=== PATIENT | female | born 1990 | race American Indian/Alaskan Native ===

== ENCOUNTER 2017-12-16 07:37 | Emergency (ER) | payer SELFPAY ==
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
[2017-12-16 12:26] LABS: HCG Qualitative,Urine Negative (Negative)
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
[2017-12-16] MEDS ORDERED: MOTRIN PO ONE (13:21)
[2017-12-16 13:42] VITALS: BP 124/78
== END 2017-12-16 13:40 | disposition home or self-care (01) ==
LOC: ED 07:37
DX: S00.83XA Contusion of other part of head, initial encounter (principal); H57.8 Other specified disorders of eye and adnexa; F17.200 Nicotine dependence, unspecified, uncomplicated; F12.10 Cannabis abuse, uncomplicated; V89.2XXA Person injured in unspecified motor-vehicle accident, traffic, initial encounter; W22.19XA Striking against or struck by other automobile airbag, initial encounter; Y93.89 Activity, other specified; Y99.8 Other external cause status; Y92.488 Other paved roadways as the place of occurrence of the external cause
CPT/HCPCS: 70450; 70486; 72125; 81025

== ENCOUNTER 2018-03-30 10:08 | Emergency (ER) | payer MEDICAID ==
[2018-03-30 10:21] VITALS: BP 109/61
[2018-03-30] MEDS ORDERED: MOTRIN PO ONE (11:22)
--- NOTE | 2018-03-30 11:26 | Emergency Department Report ---
ED ENT HPI - General Chief complaint: Dental/Oral Stated complaint: TOOTHACHE Time Seen by Provider: 03/30/18 11:21 Source: patient Mode of arrival: Ambulatory Limitations: No Limitations - History of Present Illness Initial comments: 77-year-old -[place] female with no past medical history comes in complaining of left upper tooth pain for 1 week. Patient reports that the pain is a 10 out of 10 and it makes her head hurts. She admits to chills no fever. Patient reports that she does not have a dentist that she may be able to be seen by dentist on . Since only taken Tylenol and Goody powders for pain management. She reports this has not helped. MD complaint: tooth pain -: week(s) (1) Location: tooth # (16) Severity: severe Severity scale (0 -10): 10 Quality: aching, constant Consistency: constant - Related Data Previous Rx's Medication Instructions Recorded Last Taken Type Sulfamethoxazole/Trimethoprim 1 each PO Q12H #14 tablet 06/06/14 Unknown Rx [Bactrim Ds] Cyclobenzaprine [Flexeril 10 MG 10 mg PO TID PRN #30 tablet 06/18/15 Unknown Rx TAB] HYDROcodone/APAP 5-325 [[place] 1 each PO Q6HR PRN #20 tablet 06/18/15 Unknown Rx 5-325 mg TAB] Ibuprofen [Motrin 600 MG tab] 600 mg PO Q8H PRN #40 tablet 06/18/15 Unknown Rx Loratadine [Claritin] 10 mg PO DAILY #30 tablet 06/18/15 Unknown Rx Sulfamethoxazole/Trimethoprim 1 each PO BID #20 tablet 06/18/15 Unknown Rx [Bactrim DS TAB] Cyclobenzaprine [Flexeril] 10 mg PO TID PRN #12 tablet 12/16/17 Unknown Rx Erythromycin [Erythromycin Ophth 1 applic OP QID #1 tube 12/16/17 Unknown Rx Oint] Amoxicillin [Amoxicillin TAB] 875 mg PO BID #20 tablet 03/30/18 Unknown Rx Ibuprofen [Motrin 800 MG tab] 800 mg PO Q8HR PRN #30 tablet 03/30/18 Unknown Rx traMADol [Ultram 50 MG tab] 50 mg PO Q6HR PRN #20 tablet 03/30/18 Unknown Rx Allergies Allergy/AdvReac Type Severity Reaction Status Date / Time No Known Allergies Allergy Verified 06/06/14 07:32 ED Dental HPI - General Chief complaint: Dental/Oral Stated complaint: TOOTHACHE Time Seen by Provider: 03/30/18 11:21 Source: patient Mode of arrival: Ambulatory Limitations: No Limitations - Related Data Previous Rx's Medication Instructions Recorded Last Taken Type Sulfamethoxazole/Trimethoprim 1 each PO Q12H #14 tablet 06/06/14 Unknown Rx [Bactrim Ds] Cyclobenzaprine [Flexeril 10 MG 10 mg PO TID PRN #30 tablet 06/18/15 Unknown Rx TAB] HYDROcodone/APAP 5-325 [[place] 1 each PO Q6HR PRN #20 tablet 06/18/15 Unknown Rx 5-325 mg TAB] Ibuprofen [Motrin 600 MG tab] 600 mg PO Q8H PRN #40 tablet 06/18/15 Unknown Rx Loratadine [Claritin] 10 mg PO DAILY #30 tablet 06/18/15 Unknown Rx Sulfamethoxazole/Trimethoprim 1 each PO BID #20 tablet 06/18/15 Unknown Rx [Bactrim DS TAB] Cyclobenzaprine [Flexeril] 10 mg PO TID PRN #12 tablet 12/16/17 Unknown Rx Erythromycin [Erythromycin Ophth 1 applic OP QID #1 tube 12/16/17 Unknown Rx Oint] Amoxicillin [Amoxicillin TAB] 875 mg PO BID #20 tablet 03/30/18 Unknown Rx Ibuprofen [Motrin 800 MG tab] 800 mg PO Q8HR PRN #30 tablet 03/30/18 Unknown Rx traMADol [Ultram 50 MG tab] 50 mg PO Q6HR PRN #20 tablet 03/30/18 Unknown Rx Allergies Allergy/AdvReac Type Severity Reaction Status Date / Time No Known Allergies Allergy Verified 06/06/14 07:32 ED Review of Systems ROS: Stated complaint: TOOTHACHE Other details as noted in HPI Constitutional: chills Eyes: denies: eye pain, eye discharge, vision change ENT: dental pain Respiratory: denies: cough, shortness of breath, wheezing Cardiovascular: denies: chest pain, palpitations Endocrine: no symptoms reported Gastrointestinal: denies: abdominal pain, nausea, diarrhea Genitourinary: denies: urgency, dysuria, discharge Musculoskeletal: denies: back pain, joint swelling, arthralgia Skin: denies: rash, lesions Neurological: denies: headache, weakness, paresthesias Psychiatric: denies: anxiety, depression Hematological/Lymphatic: denies: easy bleeding, easy bruising ED Past Medical Hx - Past Medical History Previous Medical History?: No - Surgical History Past Surgical History?: No - Social History Smoking Status: Current Every Day Smoker Substance Use Type: Alcohol - Medications Home Medications: Home Medications Medication Instructions Recorded Confirmed Last Taken Type Sulfamethoxazole/Trimethoprim 1 each PO Q12H #14 tablet 06/06/14 Unknown Rx [Bactrim Ds] Cyclobenzaprine [Flexeril 10 MG 10 mg PO TID PRN #30 tablet 06/18/15 Unknown Rx TAB] HYDROcodone/APAP 5-325 [[place] 1 each PO Q6HR PRN #20 tablet 06/18/15 Unknown Rx 5-325 mg TAB] Ibuprofen [Motrin 600 MG tab] 600 mg PO Q8H PRN #40 tablet 06/18/15 Unknown Rx Loratadine [Claritin] 10 mg PO DAILY #30 tablet 06/18/15 Unknown Rx Sulfamethoxazole/Trimethoprim 1 each PO BID #20 tablet 06/18/15 Unknown Rx [Bactrim DS TAB] Cyclobenzaprine [Flexeril] 10 mg PO TID PRN #12 tablet 12/16/17 Unknown Rx Erythromycin [Erythromycin Ophth 1 applic OP QID #1 tube 12/16/17 Unknown Rx Oint] Amoxicillin [Amoxicillin TAB] 875 mg PO BID #20 tablet 03/30/18 Unknown Rx Ibuprofen [Motrin 800 MG tab] 800 mg PO Q8HR PRN #30 tablet 03/30/18 Unknown Rx traMADol [Ultram 50 MG tab] 50 mg PO Q6HR PRN #20 tablet 03/30/18 Unknown Rx ED Physical Exam - General Limitations: No Limitations General appearance: alert, in no apparent distress - Eye Eye exam: Present: normal appearance - ENT ENT exam: Present: mucous membranes moist - Expanded ENT Exam Expanded Teeth exam: Present: dental caries (16), dental tenderness # (14,16) - Neck Neck exam: Present: lymphadenopathy (left cervical lymphadenopathy) - Respiratory Respiratory exam: Present: normal lung sounds bilaterally. Absent: respiratory distress - Cardiovascular Cardiovascular Exam: Present: regular rate, normal rhythm. Absent: systolic murmur, diastolic murmur, rubs, gallop - Neurological Exam Neurological exam: Present: alert, oriented X3 - Psychiatric Psychiatric exam: Present: normal affect, normal mood - Skin Skin exam: Present: warm, dry, intact, normal color. Absent: rash ED Course Vital Signs 03/30/18 10:17 Temperature 98.4 F Pulse Rate 56 L Respiratory 20 Rate Blood Pressure 109/61 O2 Sat by Pulse 99 Oximetry ED Medical Decision Making - Medical Decision Making Patient's been evaluated with this provider Stephanie. I discussed the patient and give her ibuprofen for pain 800 mg now. Discussed the patient would discharge her on amoxicillin 875 by mouth twice a day for 10 days tramadol 50 mg 1 tablet by mouth daily as well as ibuprofen 800 mg by mouth 3 times a day when necessary. Discussed patient I give her a list of dentists. Patient verbalized understanding. Critical care attestation.: If time is entered above; I have spent that time in minutes in the direct care of this critically ill patient, excluding procedure time. ED Disposition Clinical Impression: Abscess, dental Disposition: [id number] TO HOME OR SELFCARE Is pt being admited?: No Does the pt Need Aspirin: No Condition: Stable Instructions: Dental Abscess (ED) Additional Instructions: Please get complete antibiotics as prescribed. Take pain medication on as needed basis. Is very important for you to follow up with a dentist for treatment. Prescriptions: Amoxicillin [Amoxicillin TAB] 875 mg PO BID #20 tablet Ibuprofen [Motrin 800 MG tab] 800 mg PO Q8HR PRN #30 tablet PRN Reason: Pain traMADol [Ultram 50 MG tab] 50 mg PO Q6HR PRN #20 tablet PRN Reason: Pain Referrals: PRIMARY CARE, [Primary Care Provider] - 3-5 Days [facility] [Outside] - 3-5 Days [facility] [Outside] - 3-5 Days [facility] [Provider Group] - 3-5 Days Forms: Work/School Release Form(ED)
== END 2018-03-30 11:56 | disposition home or self-care (01) ==
LOC: ED 10:08
DX: K04.7 Periapical abscess without sinus (principal); F17.200 Nicotine dependence, unspecified, uncomplicated
CPT/HCPCS: 99282